=== PATIENT | male | born 1995 | race Caucasian/White ===

== ENCOUNTER 2019-04-01 03:18 | Emergency (ER) | payer OTHER ==
[~2019-04-01] VITALS: Ht 170.2 cm; Wt 77.1 kg
[2019-04-01 03:21] VITALS: BP 131/70; Ht 170.2 cm; Wt 77.1 kg
== END 2019-04-01 04:40 | disposition other institution (70) ==
LOC: ED 03:18
DX: S29.012A Strain of muscle and tendon of back wall of thorax, initial encounter (principal); Z88.0 Allergy status to penicillin; V48.5XXA Car driver injured in noncollision transport accident in traffic accident, initial encounter; Y93.I9 Activity, other involving external motion; Y92.413 State road as the place of occurrence of the external cause; Y99.8 Other external cause status

== ENCOUNTER 2019-04-01 03:18 | Emergency (ER) | payer OTHER | END 2019-04-01 04:40 | disposition other institution (70) | LOC: ED 03:18 | DX: Z02.89 Encounter for other administrative examinations (principal) ==